=== PATIENT | female | born 1995 | race Caucasian/White ===

== ENCOUNTER → 2017-12-10 12:07 | Outpatient (CLI) | payer OTHER, MEDICAID, SELFPAY ==
[2017-12-11 15:11] LABS: Strep Grp B PCR NEG for Grp B Strep
== END ==
PROVIDERS: Visit Provider Family Medicine
DX: Z3A.36 36 weeks gestation of pregnancy (principal)
CPT/HCPCS: 87653

== ENCOUNTER 2017-12-27 07:28 | Observation (INO) | payer OTHER, MEDICAID, SELFPAY ==
[2017-12-27 08:38] LABS: Appearance Urine UA CLEAR; Bilirubin Urine UA NEGATIVE (NEGATIVE); Color Urine UA YELLOW; Glucose Urine UA NEGATIVE (Normal); Ketones Urine UA 1+ (NEGATIVE); Leukocyte Esterase Urine UA 2+ (NEGATIVE); Nitrite Urine UA Negative (Negative); Occult Blood Urine UA NEGATIVE (Negative); Protein Urine UA NEGATIVE (Negative); Urobilinogen Urine UA 0.2 E.U./dL (0.2)
[2017-12-27 08:41] LABS: RBC Urine None Seen (0-5/HPF)
[2017-12-27 08:48] LABS: Bacteria Urine Many (>30); Culture Indicated Urine Specimen Cultured; Squamous Epithelial Cell Urine 1-5 /HPF; WBC Urine 10-30/HPF (0-5/HPF)
--- NOTE | 2017-12-27 09:40 | PM.OBTRLD ---
Visit Information Visit Information Date of evaluation: 12/27/17 Primary OB Provider: Deisy Kay Reason for Evaluation: Yes rule out labor [facility] Social History marital status: unmarried,living together number of children: 1 household members: spouse and children lives independently: Yes caregiver/support person: No housing: house pets and animals: Yes education level: college occupational status: unemployed special silvestre needs: No leisure activities: other other: horses, boating seatbelt use: always helmet use: Yes water heater temp set < 120 deg: Yes working smoke detector in home: Yes fire extinguisher in home: Yes carbon monox detector in home: Yes firearms in home: No do you feel safe at home: Yes Smoking Status: Never smoker alcohol intake: current (not while ) substance use type: does not use during the past year weight has: remained stable well-balanced diet: daily or most days daily servings fruits/ve or more times/day caffeine: Yes eating out: 1-3 times/week Type(s) of exercise: walking frequency: daily duration: 45-60 minutes/day Objective Labs Labs: Laboratory Results - last 24 hr 12/27/17 08:30 Urine Color Yellow Urine Appearance Clear Urine pH 7.0 Ur Specific [place] 1.010 Urine Protein Negative Urine Glucose (UA) Negative Urine Ketones 1+ H Urine Occult Blood Negative Urine Nitrate Negative Urine Bilirubin Negative Urine Urobilinogen 0.2 Ur Leukocyte Esterase 2+ H Urine RBC None seen Urine WBC 10-30/hpf H Ur Squamous Epith Cells 1-5 /hpf Urine Bacteria Many (>30) H Ur Culture Indicated? Specimen cultured Micro UA Comment Not Reportable Evaluation Evaluation Baseline heart rate: 145 Variability: Moderate (11-25) monitor accelerations: Present monitor decelerations: Absent Contraction Frequency (minutes): 5 Category of Tracing: I Cervical dilation (cm): 1 Laboratory results: Laboratory Tests 12/27/17 08:30 Urine Color Yellow Urine Appearance Clear Urine pH 7.0 Ur Specific [place] 1.010 Urine Protein Negative Urine Glucose (UA) Negative Urine Ketones 1+ H Urine Occult Blood Negative Urine Nitrate Negative Urine Bilirubin Negative Urine Urobilinogen 0.2 Ur Leukocyte Esterase 2+ H Urine RBC None seen Urine WBC 10-30/hpf H Ur Squamous Epith Cells 1-5 /hpf Urine Bacteria Many (>30) H Ur Culture Indicated? Specimen cultured Micro UA Comment Not Reportable Diagnosis, Plan/Disposition Final Diagnosis (1) Left flank pain: Current Visit: No Status: Acute Plan/Disposition Plan: U/A sent for culture. Contractions decreasing in frequency without cervical change. FHT reassuring. Safe for d/c home. OB Disposition: home
== END 2017-12-27 09:54 | disposition home or self-care (01) ==
LOC: LABOR 07:31
PROVIDERS: Admitting Provider Family Medicine; Visit Provider Family Medicine
DX: Z34.83 Encounter for supervision of other normal pregnancy, third trimester (principal); R10.9 Unspecified abdominal pain; Z3A.38 38 weeks gestation of pregnancy
CPT/HCPCS: 59025; 59050; 81003; 81015; 87086; G0378; G0379

== ENCOUNTER 2017-12-29 11:27 | Inpatient (IN) | payer OTHER, MEDICAID, SELFPAY ==
[2017-12-29 12:14] LABS: Add Manual Diff / Slide Review NO; Basophils Percent Auto 0.5 % (0-2); Eosinophils Percent Auto 0.2 % (2-4); Hematocrit 40.3 % (36-46); Hemoglobin 13.4 g/dL (12.0-16.0); Lymphocytes Percent Auto 20.4 % (25-40); Mean Corpuscular HGB Conc 33.3 % (30-36); Mean Corpuscular Hemoglobin 28.2 PG (26-34); Mean Corpuscular Volume 84.6 fL (80-100); Monocytes Percent Auto 5.4 % (3-14); Neutrophils Absolute Auto 7900 /uL (3000-5900); Neutrophils Percent Auto 73.5 % (50-75); Platelet Count 300 X10^3/uL (150-400); Red Blood Cell Count 4.77 X10^6/uL (4.0-5.2); Red Cell Distribution Width 14.3 % (11.6-14.8); White Blood Cell Count 10.7 X10^3/uL (4.5-11.0)
[2017-12-29] MEDS: ONDANSETRON 4 MG/2 ML INJ IV (12:35)
--- NOTE | 2017-12-29 13:28 | P.HPOB_ITS ---
OB HPI Date/Time Date of admission: 12/29/17 Date Patient Seen: 12/29/17 Time Patient Seen: 12:40 History of Present Illness Chief complaint: OBSERVATION OF LABOR : 2 Para: 1 Estimated Date of Delivery: 01/06/18 Estimated Gestational Age (weeks): 38w6d Narrative: Deisy Cantu is a 22 year old woman at 38w6d who presented in active labor. The pt reports that her contractions started to increase in frequency and intensity at around 1am. Since then, they have progressively become stronger. She was evaluated at [facility] in [place], and found to be 3cm. The pt had some blood show this morning, but none since then. No LOF. She is feeling the baby move regularly. History of Present care: good care Dating criteria: LMP confirmed by 1st trimester US Ultrasounds: normal mid trimester US Obstetrical complications: other (EIF - no genetic screening completed) Medical complications: none Preadmission Labs Blood type: A (+) positive -: Antibody screen: negative, GBS status: negative, HBsAG: negative, HIV: negative, HSV 1: negative, HSV 2: negative and RPR/VDLR: negative -: Rubella: not immune and Varicella: immune HCT: 38.4 HCAB: negative 1 hr GTT: 112 Prior (ies) History: 05/01/15 - at 41 weeks, 6lb3oz, forceps-assisted delivery Evaluation Evaluation Baseline heart rate: 140 Variability: Moderate (11-25) monitor accelerations: Present monitor decelerations: Absent Contraction Frequency (minutes): 4 Uterine Contraction Intensity: Moderate Category of Tracing: I Cervical dilation (cm): 5 Cervical effacement (%): 90 station: -1 Laboratory results: Laboratory Tests 12/29/17 12:00 WBC 10.7 RBC 4.77 Hgb 13.4 Hct 40.3 MCV 84.6 MCH 28.2 MCHC 33.3 RDW 14.3 Plt Count 300 Neut % (Auto) 73.5 Lymph % (Auto) 20.4 L [place] % (Auto) 5.4 Eos % (Auto) 0.2 L Baso % (Auto) 0.5 Neut # (Auto) 7900 H PFS Social History marital status: unmarried,living together number of children: 1 household members: spouse and children lives independently: Yes caregiver/support person: No housing: house pets and animals: Yes education level: college occupational status: unemployed special silvestre needs: No leisure activities: other other: horses, boating seatbelt use: always helmet use: Yes water heater temp set < 120 deg: Yes working smoke detector in home: Yes fire extinguisher in home: Yes carbon monox detector in home: Yes firearms in home: No do you feel safe at home: Yes Smoking Status: Never smoker alcohol intake: current (not while ) substance use type: does not use during the past year weight has: remained stable well-balanced diet: daily or most days daily servings fruits/ve or more times/day caffeine: Yes eating out: 1-3 times/week Type(s) of exercise: walking frequency: daily duration: 45-60 minutes/day Meds Home Medications Medication Instructions Recorded Confirmed Type No Known Home Medications 12/27/17 12/27/17 History Allergies Allergy/AdvReac Type Severity Reaction Status Date / Time No Known Drug Allergies Allergy Verified 12/27/17 08:38 Review of Systems Review of Systems All systems reviewed & are unremarkable except as noted in HPI and below Exam Const General: cooperative, healthy appearing and comfortable Resp Effort & Inspection: normal respiratory effort Auscultation: clear to auscultation bilaterally Cardio Rate: regular rate Rhythm: regular rhythm Heart Sounds: no murmurs GI Palpation: soft and No tender Extrem General: No edema Objective Labs Result Diagrams: 12/29/17 12:00 Labs: Laboratory Results - last 24 hr 12/29/17 12:00 WBC 10.7 RBC 4.77 Hgb 13.4 Hct 40.3 MCV 84.6 MCH 28.2 MCHC 33.3 RDW 14.3 Plt Count 300 Neut % (Auto) 73.5 Lymph % (Auto) 20.4 L [place] % (Auto) 5.4 Eos % (Auto) 0.2 L Baso % (Auto) 0.5 Neut # (Auto) 7900 H Assessment and Plan (1) Active labor: Current visit: Yes Status: Acute (2) 38 weeks gestation of : Current visit: Yes Status: Acute 22yo at 38w6d here in active labor. EIF on U/S, pt declined genetic screening. No other complications with . GBS negative, Rh positive. - Expectant management, anticipate - GBS negative, no antibiotic prophylaxis indicated - Epidural for pain control now - FHT reassuring
[2017-12-29] MEDS: LACTATED RINGERS 1,000 ML 100 ML IV (14:40)
--- NOTE | 2017-12-29 16:42 | PM.OBPRVD ---
Events: Meconium Stained Fluid Delivery date: 12/29/17 Intrapartal events: None Induction method: none Delivery augmentation: rupture of membranes Delivery monitor: external FHT Route of delivery: Laceration description: None Estimated blood loss (mL): 150 Anesthesia type: Epidural Narrative: PROCEDURE: at 38w6d presented in active labor and was admitted to Labor and Delivery. The patient progressed through the 1st stage over 8 hours. Pain was controlled with an epidural. When completely dilated, pt was AROMed with production of thin meconium. The patient progressed through the 2nd stage over 45 minutes and delivered a viable female infant with APGARs 8/9 at 15:06 via . The cord was cut and clamped after it stopped pulsating. The perineum and vagina were inspected with no lacerations. PREPROCEDURE DIAGNOSIS: Intrauterine at 38w6d GBS negative RH positive POSTPROCEDURE DIAGNOSIS: Intrauterine at 38w6d, delivered Same as preprocedure S/P meconium BABY A DELIVERY TIME: 15:06 BABY A OUTCOME: Viable BABY A SEX: Male BABY A WEIGHT: 6lb10.8oz BABY A PRESENTATION: Vertex BABY A POSITION: OA BABY A NUCHAL CORD: No BABY A # CORD VESSELS: 3 BABY A CORD GASES OBTAINED: No PLACENTA DELIVERY TIME: 15:10 PLACENTAL DELIVERY TYPE: Spontaneous PLACENTA APPEARANCE: Intact
[2017-12-29 16:50] VITALS: BP 106/62
--- NOTE | 2017-12-29 16:53 | P.PCNOB_ITS ---
Events: Meconium Stained Fluid Delivery date: 12/29/17 Intrapartal events: None Induction method: none Delivery augmentation: rupture of membranes Delivery monitor: external FHT Route of delivery: Laceration description: None Estimated blood loss (mL): 150 Anesthesia type: Epidural Narrative: PROCEDURE: at 38w6d presented in active labor and was admitted to Labor and Delivery. The patient progressed through the 1st stage over 8 hours. Pain was controlled with an epidural. When completely dilated, pt was AROMed with production of thin meconium. The patient progressed through the 2nd stage over 45 minutes and delivered a viable female infant with APGARs 8 /9 at 15:06 via . The cord was cut and clamped after it stopped pulsating. The perineum and vagina were inspected with no lacerations. PREPROCEDURE DIAGNOSIS: Intrauterine at 38w6d GBS negative RH positive POSTPROCEDURE DIAGNOSIS: Intrauterine at 38w6d, delivered Same as preprocedure S/P meconium BABY A DELIVERY TIME: 15:06 BABY A OUTCOME: Viable BABY A SEX: Male BABY A WEIGHT: 6lb10.8oz BABY A PRESENTATION: Vertex BABY A POSITION: OA BABY A NUCHAL CORD: No BABY A # CORD VESSELS: 3 BABY A CORD GASES OBTAINED: No PLACENTA DELIVERY TIME: 15:10 PLACENTAL DELIVERY TYPE: Spontaneous PLACENTA APPEARANCE: Intact
[2017-12-29] MEDS: IBUPROFEN 600 MG TABLET PO (21:27)
[2017-12-29] MEDS: DERMOPLAST SPRAY 20% 60 ML 1 SPRAY TOP (21:27)
[2017-12-29] MEDS: OXYCODONE/ACETAMINOPHEN 5/325 TABLET 1 TAB PO (23:59)
[2017-12-30] MEDS: OXYCODONE/ACETAMINOPHEN 5/325 TABLET 1 TAB PO ×2 (05:25→09:28)
[2017-12-30] MEDS: IBUPROFEN 600 MG TABLET PO (05:25)
[2017-12-30 07:16] LABS: Hematocrit 37.2 % (36-46); Hemoglobin 12.5 g/dL (12.0-16.0)
[2017-12-30] MEDS: PRENATAL VIT,CALC/IRON/FOLIC 1 TABLET 1 TAB PO (09:28)
--- NOTE | 2017-12-30 09:58 | PM.OBDS.1 ---
Discharge Providers Date of admission: 12/29/17 11:27 Consults: 12/29/17 16:50 Consult to [employer] Routine Comment: Discharge provider: Deisy Kay MD Summary Date Patient Seen: 12/30/17 Time Patient Seen: 09:30 Hospital Course: The pt was admitted in active labor. She received an epidural for pain control. She progressed to complete, at which time AROM was performed with production of meconium-stained fluid. She then delivered a viable baby boy with APGARs 8/9 on 12/29/17. There were no lacerations. The pt tolerated delivery well. , there were no complications. At the time of discharge she was voiding, passing flatus, and ambulating without difficulty. Her lochia was decreasing appropriately. She was with good latch. She would like OCPs for control , and will start Micronor at her 6wk appt. Her partner plans on getting a vasectomy within the next year. Peripartum Data Delivery Method: Natural Vaginal Laceration description: None Procedures: Spontaneous vaginal delivery complications: none [place] 1: Gender: Male Disposition of : home Discharge Diagnosis (1) 38 weeks gestation of : Status: Acute (2) Spontaneous vaginal delivery: Status: Acute Status at Discharge Functional status at discharge: independent ambulation Overall status at discharge: patient is back to baseline Time Spent with Patient Total time spent providing and/or coordinating discharge services: Objective Labs Result Diagrams: 12/30/17 07:00 Labs: Laboratory Results - last 24 hr 12/29/17 12/29/17 12/30/17 12:00 12:00 07:00 WBC 10.7 RBC 4.77 Hgb 13.4 12.5 Hct 40.3 37.2 MCV 84.6 MCH 28.2 MCHC 33.3 RDW 14.3 Plt Count 300 Neut % (Auto) 73.5 Lymph % (Auto) 20.4 L [place] % (Auto) 5.4 Eos % (Auto) 0.2 L Baso % (Auto) 0.5 Neut # (Auto) 7900 H Blood Type A Positive Antibody Screen Negative Discharge Plan Discharge Plan Patient Disposition: Home, Self-Care Discharge Med Rec/Prescriptions Prescriptions: New acetaminophen 325 mg Tablet 650 mg PO Q6HR PRN (Reason: Pain, Mild (1-3)) Qty: 30 RF: 0 benzocaine-menthol [Dermoplast (with menthol)] 20-0.5 % Aerosol 1 spray Topical Q1HR PRN (Reason: perineal pain) Qty: 15 RF: 0 ibuprofen 600 mg Tablet 600 mg PO Q6HR PRN (Reason: Pain, Mild (1-3)) Qty: 30 RF: 0 lanolin [[id number]] Cream 1 applic Topical PRN PRN (Reason: Tenderness) Qty: 15 RF: 0 [id number] [Prenatabs Rx] 29 mg iron- 1 mg Tablet 1 tab PO DAILY Qty: 30 RF: 0 Follow up/Referrals: Deisy Kay MD [Physician] - 6 Weeks (Wednesday,January at 11:15 am with ) Provider Discharge Instructions Diet: Regular Activity: No intercourse for 6 weeks Wound Care Report to your healthcare provider any signs of infection, such as:: chills, fever, increased pain and unusual drainage Visit Report/Discharge Packet Instructions: DI for Labor and Delivery, Vaginal Visit Report Forms: Stroke Signs & Symptoms Discharge Data Attending Provider: Deisy Kay Admit Date/Time: 12/29/17 11:27 Discharges patient from system. Discharge Date/Time: 12/30/17 13:30
[2017-12-30 10:10] VITALS: BP 106/62; PULSE 92; RESP 16; TEMP 36.5
[2017-12-30] MEDS: MEASLES,MUMPS,RUBELLA VACC/PF 0.5 ML VIAL SUBCUT (13:20)
== END 2017-12-30 13:30 | disposition home or self-care (01) | DRG 775 ==
PROVIDERS: Admitting Provider Family Medicine; Visit Provider Family Medicine
DX: O77.0 Labor and delivery complicated by meconium in amniotic fluid (principal); Z3A.38 38 weeks gestation of pregnancy; Z37.0 Single live birth
CPT/HCPCS: 01967; 36415; 59050; 59400; 85014; 85018; 85025; 86850; 86900; 86901; G0379; J2405